=== PATIENT | male | born 1975 | race Caucasian/White ===

== ENCOUNTER 2017-01-13 02:30 | Emergency (ER) | payer OTHER ==
[~2017-01-13] VITALS: Ht 180.3 cm; Wt 83.9 kg
--- NOTE | ~2017-01-13 | EKG ---
[address] [address] ELECTROCARDIOGRAM REPORT Name: OMAR FORRESTER Room #: DEP [place]#: [id number] Admission: 01/13/17 Attend Phys: Discharge: 01/13/17 Date of : 73 Report #: [id number] THIS REPORT FOR: //name// [facility] ED Test Date: 2017-01-13 Test Time: 03:11:57 Pat Name: OMAR FORRESTER Department: Room: Gender: M Marketing Program Manager: olayinka : 1975 Requested By: Mae Gaona Order Number: [id number] MD: Sukhi Person Measurements Intervals [place] Rate: 104 P: 50 MA: 149 QRS: 65 QRSD: 91 T: 10 QT: 325 QTc: 428 Interpretive Statements Sinus tachycardia No previous ECG available for comparison Electronically Signed On 01-13-2017 11:28:45 CDT by Sukhi Person [email or web address] <ELECTRONICALLY SIGNED> By: Sukhi Person MD 01/13/17 1128 0311 0311 Sukhi Person MD /EPI
[~2017-01-13 02:30] MED LIST: BACITRACIN15 GM TP
[2017-01-13] MEDS ORDERED: ATIVAN0.5 MG PO (02:59)
[2017-01-13] MEDS ORDERED: ATIVAN1 MG PO (03:00)
[2017-01-13] MEDS ORDERED: REMERON15 MG PO (03:01)
[2017-01-13] MEDS ORDERED: CLONAZEPAM 1 MG1 M1 PO ×2 (03:01→06:27)
[2017-01-13] MEDS ORDERED: ZOLOFT50 MG PO (03:03)
[2017-01-13] MEDS ORDERED: TOPAMAX 100 MG100 MG PO (03:04)
[2017-01-13] MEDS ORDERED: VITAMIN D1000 UNI1 PO (03:05)
[2017-01-13] MEDS ORDERED: ACETAMINOPHEN-1 EAC1 PO (03:05)
[2017-01-13] MEDS ORDERED: VOLTAREN GEL 1100 G2 TOP (03:06)
[2017-01-13] MEDS ORDERED: ZONEGRAN100 MG PO (03:06)
[2017-01-13 03:15] LABS: ABSOLUTE NEUTROPHILS 5.7 thou/uL (1.4-8.2); BASOPHILS 0.5 % (0.0-2.0); HEMATOCRIT 42.6 % (42.0-52.0); HEMOGLOBIN 14.4 gm/dL (14.0-18.0); LYMPHOCYTES 18.3 % (24.0-44.0); MANUAL DIFF NO; MCH 30.3 pg (26.0-34.0); MCHC 33.8 g/dL (28.0-37.0); MCV 89.6 fL (80.0-100.0); MONOCYTES 5.8 % (1.0-8.0); PLATELET COUNT 238 thou/uL (150-400); POLYS 73.4 % (36.0-66.0); RBC 4.75 mil/uL (4.50-6.00); RDW 13.6 % (10.5-14.5); WBC 7.7 thou/uL (4.0-11.0)
[2017-01-13 03:23] LABS: CALCIUM 8.8 mg/dL (8.5-10.1); CREATININE 1.4 mg/dL (0.6-1.3); POTASSIUM 3.4 mmol/L (3.5-5.1)
[2017-01-13 03:28] LABS: ALBUMIN 3.8 g/dL (3.4-5.0); TOTAL BILIRUBIN 0.3 mg/dL (<0.1-1.0); TOTAL PROTEIN 7.2 g/dL (6.4-8.2)
[2017-01-13 04:00] LABS: APTT 18.9 Seconds (24.5-32.8); PROTIME 10.5 Seconds (9.3-11.4)
[2017-01-13 05:32] LABS: URINE BILIRUBIN NEGATIVE (Negative); URINE BLOOD NEGATIVE (Negative); URINE COLOR YELLOW; URINE GLUCOSE-RANDOM* NEGATIVE (Negative); URINE KETONES NEGATIVE (Negative); URINE LEUKOCYTES-REFLEX NEGATIVE (Negative); URINE PROTEIN (DIPSTICK) NEGATIVE (Negative); URINE SPECIFIC GRAVITY 1.015 (1.003-1.035); URINE UROBILINOGEN 0.2 E.U./dl (0.2-1.0)
[2017-01-13] MEDS ORDERED: LAMICTAL100 MG PO (06:26)
[2017-01-13 07:20] VITALS: BP 115/90
== END 2017-01-13 07:20 ==
LOC: ER 02:30
PROVIDERS: Emergency Medicine
DX: G40.909 Epilepsy, unspecified, not intractable, without status epilepticus (principal); S09.90XA Unspecified injury of head, initial encounter; F32.9 Major depressive disorder, single episode, unspecified; Z88.8 Allergy status to other drugs, medicaments and biological substances; X58.XXXA Exposure to other specified factors, initial encounter; Y93.89 Activity, other specified; Y92.89 Other specified places as the place of occurrence of the external cause; Y99.8 Other external cause status

== ENCOUNTER 2020-02-25 09:32 | Inpatient (IN) | payer OTHER ==
[~2020-02-25] VITALS: Ht 180.3 cm; Wt 80.3 kg
[~2020-02-25 09:32] MED LIST changes: +ACETAMINOPHEN-1 EAC1 PO; +ATIVAN0.5 MG PO; +ATIVAN1 MG PO; +CLONAZEPAM 1 MG1 M1 PO; +LAMICTAL100 MG PO; +REMERON15 MG PO; +TOPAMAX 100 MG100 MG PO; +VITAMIN D1000 UNI1 PO; +VOLTAREN GEL 1100 G2 TOP; +ZOLOFT50 MG PO; +ZONEGRAN100 MG PO
[2020-02-25 09:38] VITALS: BP 99/65
[2020-02-25 09:53] LABS: ABSOLUTE NEUTROPHILS 4.7 thou/uL (1.4-8.2); BASOPHILS 0.5 % (0.0-2.0); EOSINOPHILS 2.7 % (0.0-3.0); HEMATOCRIT 42.5 % (42.0-52.0); HEMOGLOBIN 14.8 gm/dL (14.0-18.0); LYMPHOCYTES 22.7 % (24.0-44.0); MCH 32.2 pg (26.0-34.0); MCHC 34.7 g/dL (28.0-37.0); MCV 92.7 fL (80.0-100.0); MONOCYTES 5.5 % (1.0-8.0); PLATELET COUNT 310 thou/uL (150-400); POLYS 68.6 % (36.0-66.0); RBC 4.59 mil/uL (4.50-6.00); RDW 12.4 % (10.5-14.5); WBC 6.8 thou/uL (4.0-11.0)
[2020-02-25 10:10] LABS: SALICYLATE < 2.8 mg/dL (2.8-20.0)
[2020-02-25 10:38] LABS: CALCIUM 9.1 mg/dL (8.5-10.1); CREATININE 1.4 mg/dL (0.7-1.3)
[2020-02-25 10:41] LABS: POTASSIUM 4.3 mmol/L (3.5-5.1)
[2020-02-25 10:44] LABS: ALBUMIN 3.5 g/dL (3.4-5.0); TOTAL BILIRUBIN 0.7 mg/dL (<0.1-1.0); TOTAL PROTEIN 7.1 g/dL (6.4-8.2)
[2020-02-25 10:53] LABS: URINE BILIRUBIN NEGATIVE (Negative); URINE BLOOD NEGATIVE (Negative); URINE CLARITY CLEAR; URINE COLOR YELLOW; URINE GLUCOSE-RANDOM* NEGATIVE (Negative); URINE KETONES NEGATIVE (Negative); URINE LEUKOCYTES-REFLEX NEGATIVE (Negative); URINE NITRITE-REFLEX NEGATIVE (Negative); URINE PROTEIN (DIPSTICK) NEGATIVE (Negative); URINE UROBILINOGEN 0.2 E.U./dl (0.2-1.0)
[2020-02-25 11:06] LABS: AMP/METHAMP Negative (Negative); BARBITURATES Negative (Negative); BENZODIAZEPINES Negative (Negative); COCAINE Negative (Negative); METHADONE Negative (Negative); OPIATES Negative (Negative); PCP Negative (Negative)
[2020-02-25] MEDS ORDERED: ACETAMINOPHEN650 M5 PO (11:18)
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
[2020-02-25] MEDS ORDERED: MIDAZOLAM H PO (11:21)
[2020-02-25] MEDS ORDERED: MULTI-VITAMIN1 EAC5 PO (11:23)
[2020-02-25 12:04] VITALS: BP 116/71
[2020-02-25 13:29] VITALS: BP 97/59
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
[2020-02-25 15:28] LABS: TSH 1.395 uIU/mL (0.358-3.740)
--- NOTE | 2020-02-25 18:10 | NUR ---
WEARING SAFTEY HELMET PER PT REPORT FOR FALLING AND HITTING HEAD FREQUENTLY IN SAME SPOT. SCALP IS NOTED TO HAVE SMALL PEICE OF TAPE TO BACK OF HEAD SLIGHTLY LEFT OFF MIDLINE-NOTED TO HAVE APPROX 1.5CM X 3 CM WOUND MODERATE AMOUNT BARRIENTOS/LIGHT GREEN DRAINAGE ON TAPE COVERING. CLEANSED WITH NORMAL SALINE AND HAIR SURROUNDING CUT BACK,MATED PARTICALS REMOVED,LARGE AMOUNT DRIED BLOOD,MATTED HAIR,SKIN REMOVED AND AREA COVERED WITH OPTIFORM BORDER ADHESIVE DRESSING. DR. COVARRUBIAS NOTIFIED. WOUND CARE CONSULT ORDERED.
[2020-02-25 19:38] VITALS: BP 92/61
--- NOTE | 2020-02-26 05:27 | NUR ---
Assumed care of pt @ 1900. Pt calm et cooperative with pleasant bryantnor this shift. Took medications whole without difficulty but expressed that he did not like taking his medications at HS as he generally takes his HS medications around 1700 while at home. Advised pt to talk with physician when he sees him today to discuss his concerns with the timing of his meds. Pt verbalized understanding. Ambulates halls ad farideh with steady gait. VSWNL. Health assessment with no abnormalities other than noted previously. Denies SI/HI. Currently resting in bed with eyes closed. Pt appears to have rested well this shift. Will continue to monitoe per protocol.
--- NOTE | 2020-02-26 07:42 | EKG ---
[facility] [address] [place] [address] ELECTROCARDIOGRAM REPORT Name: OMAR FORRESTER Room #: [facility]- ADM IN M.R.#: [id number] Admission: 02/25/20 Attend Phys: Bob Grier DO Discharge: Date of : 73 Report #: [id number] THIS REPORT FOR: cc: Moises Durand James D. DO Lundgren, Craig H. MD [facility] ~ THIS REPORT FOR: //name// [facility] ED Test Date: 2020-02-25 Test Time: 09:49:13 Pat Name: OMAR FORRESTER Department: Room: [facility] Gender: M Physiology Teacher: justus : 1975 Requested By: Raymon Matias Order Number: [id number] MD: Martinez Tompkins Measurements Intervals [place] Rate: 95 P: 38 MI: 145 QRS: 46 QRSD: 95 T: -5 QT: 343 QTc: 431 Interpretive Statements Sinus rhythm Borderline T abnormalities Compared to ECG 01/13/2017 03:11:57 T-wave abnormality now present Sinus tachycardia no longer present Electronically Signed On 02-26-2020 7:40:38 CDT by Martinez Tompkins [email or web address] <ELECTRONICALLY SIGNED> By: Martinez Tompkins MD, [facility] 02/26/20 0740 0949 0949 Martinez Tompkins MD, [facility] /EPI
[2020-02-26 08:27] VITALS: BP 86/52
--- NOTE | 2020-02-26 12:14 | NUR ---
WITHDRAWN TO ROOM INITALLY THIS AM REFUSING TO COME OUT FOR BREAKFAST BUT DID FINISH ENTIRE MEAL IN ROOM. COMPLIENT WITH TAKING AM MEDICATIONS WITHOUT RESISITANCE. LABILE MOOD INITALLY THIS AM ABRUPT AND TERSE WITH VERBAL RESPONSES-ANGRY/TENSE FACIAL EXPRESSION. AT 1100 WAS BRIGHTER APPEARED MORE RELAXED AND SLIGHTLY MORE VERBAL. CONTINUES TO STATE DURING 1;1 THAT HE DOESN'T WANT OR NEED TO BE HERE. DENIES C/O PAIN. NO SZ ACTIVITY SO FAR THIS SHIFT. REMAINS ON FALLS PRECAUTIONS FOR FREQUENT SEIZURES/FALLS
--- NOTE | 2020-02-26 14:18 | NUR ---
BLOOD PRESSURE TAKEN VIA BRIANNE CUFF PER MD ORDER 112/64 P-70. DR. MCGRAW PAGED AWAITING RETURN CALL
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
[2020-02-26 19:30] VITALS: BP 101/65
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
--- NOTE | 2020-02-26 21:11 | NUR ---
Assumed care at change of shift. Pt. was sitting in day room watching TV. He is complaining about intrusive patients. Education done regarding proper actions if he has a complaint or if another patient is bothering him either mentally or physically. He states that he is happy with his room change. He is alert and oriented x 3. He is able to recall the actions that brought him to [facility], but is unable to give any information regarding his discharge planning. He his wearing his helmet/hat for head protection due to seizures. Optifoam is intact and dry to wound at back of head. He currently denies pain or any seizure activity. He states that he very rarely has any indication when a seizure is upon him. He was instructed to call out if he is in need of any assistance or if any seizure activity is noted. He currently denies any pain but states that it "hurts" when they change the dressing to his head. No signs or symptoms of pain or any distress is noted and no seizure activity is noted.
[2020-02-26 23:12] VITALS: BP 101/65
--- NOTE | 2020-02-27 06:31 | NUR ---
Pt. slept well throughout shift. No complaints from patient and no signs or symptoms of pain or distress noted.
[2020-02-27 07:45] VITALS: BP 85/50
--- NOTE | 2020-02-27 09:00 | NUR ---
Assumed care at 0700. Pt. ate all of his breakfast.He knows his name and that he is in the hospital. He said he would take a shower though has not made any effort to take the shower. He is not a self-initiator. He gravittes to his bed when when not eating.
--- NOTE | 2020-02-27 12:10 | NUR ---
Assumed care at 0700. No offered complaints. He was compliant with medications. He was seen by the wound card physician--who saw head wound and approved of the wound care. He declined lunch stating "I usually don't eat lunch. Pt. stated he typically does not eat lunch and usually spends most of his days on the weekend in bed. In a brief conversation with patient he revealed some of his hobbies. His speech was clear, organized without any indication of aphasia.
--- NOTE | 2020-02-27 16:33 | NUR ---
0815 VS recheck+ Lying=left art=89/55 p=81, Sitting=95/65 p78, Standing=90/68 P=104.
[2020-02-27 19:30] VITALS: BP 98/65
--- NOTE | 2020-02-28 04:58 | NUR ---
Assumed care of pt @ 1900. Pt calm et cooperative this shift. No medication ordered to be given this shift. Ambulates the halls ad farideh with steady gait. Socialized with peers in dayroom until HS. VSWNL. Health assessment with no abnormalities noted at present time. Denies SI/HI. Currently resting in bed with eyes closed. Will continue to monitor per protocol.
[2020-02-28 07:37] VITALS: BP 107/55
[2020-02-28 09:24] LABS: CALCIUM 8.8 mg/dL (8.5-10.1); CREATININE 1.2 mg/dL (0.7-1.3); POTASSIUM 3.5 mmol/L (3.5-5.1)
--- NOTE | 2020-02-28 17:21 | NUR ---
0700 ASSUMED CARE OF PATIENT, PATIENT LYING IN BED AT THAT TIME. 0800 PATIENT TO DAYROOM FOR BREAKFAST. NO C/O PAIN, DENIES NEEDS. BS ACTIVE. MEDICATION TAKEN WHOLE WITHOUT DIFFICULTY. WOUND TO HEAD CLEANED WITH NS AND OINTMENT APPLIED. BANDAGE APPLIED. PATIENT STATES GOAL FOR TODAY WOULD BE TO GET OUT OF HERE AND CONCERN OF PATIENT IS HE DOES NOT LIKE BEING HERE. PATIENT STATES "I UNDERSTAND THEIR POINT OF VIEW, THE SITUATION DID ESCALATE AND WE ALL HAVE LIMITS". "I DO NOT BELONG HERE, I AM FINE". PATIENT TALKS TO MUSIC INTERNSH[employer] AND NOTED TO BE SAD ABOUT THE INCIDENT. PATIENT SITS IN DAYROOM WATCHING TV AND COMMUNICATING WELL WITH OTHERS. WILL CONTINUE TO OBSERVE
[2020-02-28 19:40] VITALS: BP 110/68
--- NOTE | 2020-02-28 22:33 | NUR ---
ASSUMED CARE ON 02/28/20 @ 19:15. IN THE MILEU, SOCIALIZING WITH PEERS, HELPING PEERS AND WATCHING TV. CAUTIONED NOT TO ASSIST PEERS, BUT TO ADVISE NURSING IF HE SEES SOMEONE WHO NEEDS HELP. COOPERATIVE WITH ASSESSMENT, NO HS MEDICATIONS ORDERED. RETIRED TO BED @ 2200 WHEN TV TURNS OFF. IN BED WITH EYES CLOSED, RESPIRATIONS EVEN AND UNLABORED
[2020-02-29 01:20] VITALS: BP 110/68
[2020-02-29 07:23] VITALS: BP 77/45
--- NOTE | 2020-02-29 10:22 | NUR ---
0700 ASSUMED CARE OF PATIENT, PATIENT IN BED AT THAT TIME. 0800 PATIENT OUT IN DAYROOM FOR BREAKFAST. PATIENT CALM AND COOPERATIVE NO C/O PAIN. DENIED NEEDS AT THAT TIME. MEDICATION TAKEN WHOLE WITHOUT DIFFICULTY. 1015 VS RETAKEN, ATTEMPTED TO GET BP ON LEFT ARM AND THE CUFF INFLATED AND TIGHTENED AROUND ARM PATIENT BECAME TENSE WITH HANDS CURLED IN IF ABOUT TO HAVE A SIEZURE. SOON CUFF WAS REMOVED AND NO LONGER BLANCO PRESSURE ON ARM PATIENT WAS NO LONGER TENSE AND DID NOT APPEAR TO BE HAVING A SIEZURE. PATIENT DID NOT RECAL WHAT HAPPENED FOR ABOUT A MIN THEN STATES "I KNOW I WAS TENSE". BP TAKEN ON RIGHT ARM BP-103/70 P-100. PATIENT SITTING IN DAYROOM WATCHING TV. WILL CONTINUE TO OBSERVE.
--- NOTE | 2020-02-29 13:16 | NUR ---
SONIA contacted pt's mom and left a msg. SONIA contacted Jenelle with [facility] regarding pt's discharge tomorrow. She confirmed that was fine. SONIA explained that pt much have someone accompany him to his appointments with Dr. Gomez. She said she can send staff with pt when he has appointments. SONIA asked about transportation and was told that SONIA needs to arrange that with the admissions department. Jenelle put SW on hold for 25 min. SONIA then hung up and called the facility back and was told that Jenelle left the building. SONIA then asked for admissions and after 5 more min. on hold did not receive an answer. SONIA contacted Dr. Gomez's clinic at [phone] and did not receive an answer. SONIA will attempt to do so again. SONIA team will continue to follow pt during his stay on this unit.
[2020-02-29 19:43] VITALS: BP 104/65
[2020-02-29 22:07] LABS: SYPHILIS AB Non Reactive (Non Reactive)
[2020-03-01 04:28] VITALS: BP 104/65
[2020-03-01 08:29] VITALS: BP 83/45
--- NOTE | 2020-03-01 09:31 | NUR ---
0700 ASSUMED CARE OF PATIENT AT THAT TIME. PATIENT IN BED AT THAT TIME. 0800 PATIENT IN CHAIR IN DAYROOM FOR BREAKFAST 0825 MEDICATIONS TAKEN WHOLE WITHOUT DIFFICULTY. AFTER BREAKFAST PATIENT WATCHING TV IN DAYROOM. WHILE LABORATORY TESTER WAS PASSING MEDS TO OTHER PATIENT, LABORATORY TESTER WITNESSED PATIENT HAVING A SIEZURE THAT LASTED LESS THAN A MIN. DURING SIEZURE LABORATORY TESTER SUPPORTED PATIENT IN A SITTING POSITION TO PATIENT SAFETY. PATIENT ATTEMPTED TO GET UP THE SIEZURE STARTED TO SUBSIDE. PATIENT OPENS EYES AND A BIT CONFUSED AND DOES NOT SPEAK TO LABORATORY TESTER RIGHT AWAY. AFTER ABOUT 20 SECONDS OF PATIENT OPENING EYES PATIENT IS ALERT AND ORIENTED X4. PATIENT DOES NOT REMEMBER THE SIEZURE AND DENIES HAVING ANY PREMONITION OF A SIEZURE COMING ON. PATIENT IS CALM AND COOPERATIVE. LUNG SOUNDS CLEAR, BS ACTIVE, NO C/O PAIN. ENCOURAGE FLUIDS AND H2O GIVEN. PATIENT REMAINS IN DAYROOM SITTING IN CHAIR. DR JARRETT HERE AND NOTIFIED. DR MUSE CALLED AND NOTIFIED. NO NEW ORDERS RECIEVED. WILL CONTINUE TO OBSERVE.
--- NOTE | 2020-03-01 10:08 | NUR ---
SONIA contacted patti Mills with [facility], for assistance with patients transportation for discharge. She said she will set up discharge for [id number]; however, the new policy requires pt's to have COVID testing before returning. Lina said that she will try to get that waived for pt given he was already okayed by [facility]elle to return. SONIA provided this update to Dr. Grier. SONIA suggested that they wait unil an answer comes from [facility] on if they will require pt to have that test. If so, pt will discharge tomorrow. SW team will continue to follow pt during his stay on this unit.
--- NOTE | 2020-03-01 11:07 | NUR ---
SW had a 1-1 with pt in which he described his frustration with not being heard at his facility. SW provided psychoeducation on depression; pt said that his psychologist said he is depressed but he does not agree. SW asked pt what he thinks he can do differently in the future, and he responded that he did not know he could go to his DON Jenelle about his concerns. SW supported that idea and also explained that all nursing homes have a grievance process. If pt feels like he has been complaining to staff and [facility] but are not being heard, he can ask about their grievance process. Pt admitted to seeing signs on the wall at the facility with the information for the Ombudsman. SW also relayed to pt about his delayed discharge and agreed with his frustration on not discharging today. Pt and SW contacted his mom and provided an update. When pt left SW office it was to be tested for COVID-19
[2020-03-01] MEDS ORDERED: CLONAZEPAM 1 MG1 M1 PO (14:43)
--- NOTE | 2020-03-01 16:41 | HC ---
[facility] [place] [address] CONSULTATION Name: OMAR FORRESTER Room #: 528A-A ADM IN M.R.#: [id number] Admission: 02/25/20 Attend Phys: Bob Grier DO Discharge: Date of : 73 Report #: [id number] THIS REPORT FOR: cc: Moises Durand,Howie Martinez MD ~ CC: Bob Durand DATE OF SERVICE: 02/26/2020 CHIEF COMPLAINT: Scalp ulceration. HISTORY OF PRESENT ILLNESS: This is a 44-year-old male patient with a history of epilepsy, status post vagal nerve stimulator implantation, who was sent here from [facility] for psychiatric evaluation. He has apparently developed an ulceration or wound to his scalp. He believes he fell and bumped his head about a month ago, although is a little bit fuzzy on details. I have been asked to see him with regard to wound care. PAST MEDICAL HISTORY: Positive for seizure disorder. He is status post vagal nerve stimulator. SOCIAL HISTORY: Lives in a shelter. Denies alcohol or tobacco use. FAMILY HISTORY: Noncontributory. REVIEW OF SYSTEMS: CONSTITUTIONAL: The patient denies fever, chills or weight loss. NEUROLOGICAL: The patient denies focal weakness, numbness or tingling. EYES: The patient denies visual changes, redness, or drainage. ENT: The patient denies earache, nasal drainage, sore throat. CARDIOVASCULAR: The patient denies chest pain, palpitations or diaphoresis. PULMONARY: The patient denies cough or shortness of breath. GASTROINTESTINAL: The patient denies nausea, vomiting, diarrhea or abdominal pain. ORTHOPEDIC: The patient denies pain, swelling, drainage from both lower extremities. Other systems in a 14-point review of systems are negative. PHYSICAL EXAMINATION: VITAL SIGNS: At this time include temperature 36.6, pulse 74, respiratory rate 16, blood pressure 86/52. GENERAL: This is a well-developed male patient who appears to be a little bit slow to answer questions, but in no obvious distress. HEENT: Head demonstrates a circular wound or ulceration to the [facility] [address] [place] [address] CONSULTATION Name: OMAR FORRESTER Room #: 528A-A ADM IN [facility].#: [id number] Admission: 02/25/20 Attend Phys: Bob Grier DO Discharge: Date of : 73 Report #: [id number] occipitoparietal region. It is relatively clean with healthy granulation tissue and some evidence of new epithelialization at the margins. It is not infected. There is minimal drainage and no odor at this time. No deformity, no exposure of scalp or other deep structures. Nose and throat are clear. Tympanic membranes are intact. NECK: Supple. LUNGS: Clear. HEART: Regular rhythm. ABDOMEN: Soft. Bowel sounds present. NEUROLOGIC: The patient is alert. He does move all 4 extremities spontaneously. His level of orientation is a little bit difficult to assess. LABORATORY DATA: Sodium 140, potassium 4.3, chloride 108, CO2 of 23, BUN 9, creatinine 1.4, glucose 103, total protein 7.1, albumin 3.5. White blood cell count 6.8 with a hemoglobin of 14.8. CLINICAL IMPRESSION: Scalp wound, etiology is unclear. This may in fact be traumatic. It does not have the appearance of a malignancy to plain site. I think we could localize care and if we see steady improvement, then no additional excision or biopsy would be required. If it fails to improve, then I think a biopsy would be an appropriate intervention. We will use a little bit of Bactroban ointment and a Mepilex dressing, which he is agreeable to. He is wearing a hat. Otherwise, keep dressings in place. He is a bit balding, so I think that this area will hold the dressing fairly well. He will need ongoing nutritional support. He is going to have additional psychiatric care assessment provided here. I appreciate being asked to see him in consultation. <ELECTRONICALLY SIGNED> By: Howie Kennedy MD 03/01/20 1641 [id number] Howie Kennedy MD /nt
--- NOTE | 2020-03-01 17:09 | NUR ---
PATIENT GIVEN DC INSTRUCTION, PATIENT VOICED UNDERSTANDING. AT 1645 PATIENT DC VIA WC WITH [facility]. ACCOMPANIED TO VEHICLE WITH STAFF MEMBER. PATIENT'S BELONGINGS IN HAND. REPORT CALLED TO DILLAN AT [facility] AT 1655.
--- NOTE | 2020-03-03 12:39 | D ---
[facility] [place] [address] DISCHARGE SUMMARY Name: OMAR FORRESTER Room #: 528A-A [facility] IN M.R.#: [id number] Admission: 02/25/20 Attend Phys: Bob Grier DO Discharge: 03/01/20 Date of : 73 Report #: [id number] THIS REPORT FOR: cc: Moises Durand James D. DO Kerstein, Andrew H. DO ~ THIS REPORT FOR: //name// CC: Bob Durand DATE OF SERVICE: 03/01/2020 PSYCHIATRIC DISCHARGE SUMMARY HOSPITAL COURSE: Of note, it was thought this patient was demented and he had been bumped around between his skilled nursing at [facility], the day prior to admission, so I elected to make an exception and go ahead and treat him on our unit. ATTENDING PHYSICIAN: Bob Grier DO HADOOP ADMINISTRATOR AT THE TIME OF DISCHARGE: Dr. Molina. DISCHARGE DIAGNOSES: Impulse control disorder, unspecified, improved. Seizure disorder, both severe and symptomatic as the patient had at least 2 witnessed breakthrough seizures less than a minute in duration during his hospitalization, allegedly has a VNS device implanted. Additional comorbidities include CKD stage II-III. History of recurrent falls. His DPOA was enacted for purposes of this admission that is his mother, Adrianna. We did a wound care consultation with Dr. Kennedy. He had a nonhealing scalp laceration. Recommended Bactroban and Mepilex on border daily to twice daily, Bactroban complications for the next 10 days. DISCHARGE DIET: Regular. ACTIVITY LEVEL: As tolerated. DISCHARGE MEDICATIONS: Clonazepam, which was lowered to 1 mg p.o. 3 times a day, it was previously 2 mg to 3 mg. He is on high dose anticonvulsants, topiramate 400 mg p.o. b.i.d., zonisamide 500 mg p.o. daily and lamotrigine 400 mg p.o. b.i.d., cholecalciferol 1000 International Units p.o. daily, multivitamin p.o. daily, bacitracin ointment applied twice a day for 10 days. Also, elected to stop his sertraline, mirtazapine as sometimes antidepressants can have a disinhibiting quality. The patient will be discharging back to [facility] for long-term psychiatric and medical care per the [address] [address] DISCHARGE SUMMARY Name: OMAR FORRESTER Room #: 528A-A [facility] IN .R.#: [id number] Admission: 02/25/20 Attend Phys: Bob Grier, DO Discharge: 03/01/20 Date of : 73 Report #: [id number] receiving facility. The patient does see Dr. Gutierrez for epileptology and neurology followup. I did call Dr. Gutierrez today to discuss his breakthrough seizures, left my cell number, did not receive a call back as of this evening in approximately 9 hours after I had called him. PERTINENT LABORATORY DATA: This admission; CBC on 02/25/2020 was within normal limits. Chemistry is grossly normal. Vitamin D level was 38.8. B12 was 716. TSH 1.395. UDS was negative except for benzodiazepine as expected. Salicylates less than 2.8. Acetaminophen less than 2. Syphilis serology was done, which was negative. COVID-19 PCR was required by skilled nursing and was negative. REASON FOR ADMISSION: Back on 02/25/2020 is as follows: The patient had been sent out from skilled nursing. Evidently, he was abusive toward staff and yelling at people. He had several problem behaviors including an incident where he tipped to get out of the wheelchair. HOSPITAL COURSE: The patient was admitted to Geriatric Psychiatry Unit. I reviewed his medications with the facility that of his mother. Given some of the constraints that he was already on three anticonvulsants and the nursing facility would only permit a true purpose of psychosis. I attempted to treat him with guanfacine .5 mg twice a day. His blood pressure remained borderline low and I did not feel it was safe given his history of falls and traumatic brain injury to continue this medication, so largely the admission was made of counseling and working on better problem resolution strategies. The patient was counseled that further inappropriate behavior to skilled nursing would likely lead to his eviction from being able to stay there. The patient aknowledged this. At the time of discharge, the patient was not suicidal or homicidal. PHYSICAL EXAMINATION: VITAL SIGNS: At time of discharge are as follows: Temperature 36.5, pulse 80, respirations 23. BP; they have 83/45 listed, but it did come up higher than that I believe, we do not check here, although earlier today it was 104/65, but other than the seizure activity this morning, the patient was not acting abnormal. MUSCULOSKELETAL: Wearing glasses. Normal gait and station. Unshaven though. MENTAL STATUS EXAMINATION: This is a well-developed, fairly nourished male, appearing stated age. Attention limited. Concentration fair. Speech is normal, rate, rhythm and tone. Thought process is linear and goal directed. Thought content focused on discharge. No psychomotor agitation. No sudden retardation. Mood and affect congruent and euthymic. Denied SI or HI. Denied auditory, visual or tactile hallucinations. Memory not formally tested. Insight limited. Judgment fair. Fund of knowledge, no greater than average. [facility] [address] [place] [address] DISCHARGE SUMMARY Name: OMAR FORRESTER Room #: 528A-A DIS IN M.R.#: [id number] Admission: 02/25/20 Attend Phys: Bob Grier DO Discharge: 03/01/20 Date of : 73 Report #: [id number] PROGNOSIS: For this patient is fair to guarded depending on him pursuing counseling as I have recommended to his mother at the skilled nursing as well as the patient control of his seizure disorder. addendum: I spoke to Dr. Jose Elias gutierrez his epileptologist on Saturday. He reported his VNS is working. He stated Clonazepam was being used as anticonvulsant. He states break thru seizures on day of discharge may be due to lowering the dose of Clonazepam. I relayed my disinhibitory concern and danger of patient getting evicted from [place]. [facility] since he is dsicharged. I spoke to his mother Eber after call with Dr. Mujica. Psychotherpay is essential but I would have Dr. Mujica manage psych and neuro meds at this point sicne seziures so refractory and medications intertwined. during stay. <ELECTRONICALLY SIGNED> By: Bob Grier DO 03/03/20 1239 2212 Bob Grier, /nt
== END 2020-03-01 16:45 | DRG 886 ==
LOC: ER 09:32 → SBH 11:29 → EROBS 11:29 → SBH 12:05
PROVIDERS: Emergency Medicine; Internal Medicine; ADMIT Psychiatry & Neurology Psychiatry
DX: F63.9 Impulse disorder, unspecified (principal); N17.9 Acute kidney failure, unspecified; N18.3 Chronic kidney disease, stage 3 (moderate); F32.9 Major depressive disorder, single episode, unspecified; X58.XXXA Exposure to other specified factors, initial encounter; F41.9 Anxiety disorder, unspecified; S00.01XA Abrasion of scalp, initial encounter; G40.909 Epilepsy, unspecified, not intractable, without status epilepticus; Z79.899 Other long term (current) drug therapy; Z88.8 Allergy status to other drugs, medicaments and biological substances; Y93.89 Activity, other specified; Y92.89 Other specified places as the place of occurrence of the external cause; Y99.8 Other external cause status; Z96.82 Presence of neurostimulator; Z03.818 Encounter for observation for suspected exposure to other biological agents ruled out
CPT/HCPCS: 10880

== ENCOUNTER 2020-04-19 05:21 | Emergency (ER) | payer OTHER ==
[~2020-04-19] VITALS: Ht 180.3 cm; Wt 79.4 kg
[~2020-04-19 05:21] MED LIST changes: +ACETAMINOPHEN650 M5 PO; +MIDAZOLAM H PO; +MULTI-VITAMIN1 EAC5 PO
[2020-04-19] MEDS ORDERED: LORAZEPAM I2 MG/1 ML PO (05:28)
[2020-04-19] MEDS ORDERED: CLONAZEPAM 1 MG1 M1 PO (05:29)
[2020-04-19] MEDS ORDERED: KLONOPIN1 MG PO (05:30)
[2020-04-19 06:11] LABS: BASOPHILS 0.2 % (0.0-2.0); EOSINOPHILS 0.1 % (0.0-3.0); LYMPHOCYTES 7.3 % (24.0-44.0)
[2020-04-19 06:12] LABS: ABSOLUTE NEUTROPHILS 12.7 thou/uL (1.4-8.2); HEMATOCRIT 42.5 % (42.0-52.0); HEMOGLOBIN 14.6 gm/dL (14.0-18.0); MCH 31.6 pg (26.0-34.0); MCHC 34.4 g/dL (28.0-37.0); MONOCYTES 4.1 % (1.0-8.0); PLATELET COUNT 212 thou/uL (150-400); POLYS 88.3 % (36.0-66.0); RBC 4.62 mil/uL (4.50-6.00); RDW 13.1 % (10.5-14.5); WBC 14.4 thou/uL (4.0-11.0)
[2020-04-19 06:23] LABS: CALCIUM 8.7 mg/dL (8.5-10.1); CREATININE 1.4 mg/dL (0.7-1.3); POTASSIUM 3.4 mmol/L (3.5-5.1)
[2020-04-19 06:28] LABS: ALBUMIN 3.6 g/dL (3.4-5.0); DIRECT BILIRUBIN 0.2 mg/dL (<0.1-0.2); TOTAL BILIRUBIN 0.5 mg/dL (0.2-1.0); TOTAL PROTEIN 6.7 g/dL (6.4-8.2)
[2020-04-19 07:43] LABS: URINE BILIRUBIN NEGATIVE (Negative); URINE BLOOD NEGATIVE (Negative); URINE CLARITY CLEAR; URINE COLOR YELLOW; URINE GLUCOSE-RANDOM* NEGATIVE (Negative); URINE KETONES NEGATIVE (Negative); URINE LEUKOCYTES-REFLEX NEGATIVE (Negative); URINE NITRITE-REFLEX NEGATIVE (Negative); URINE PROTEIN (DIPSTICK) NEGATIVE (Negative); URINE SPECIFIC GRAVITY 1.015 (1.005-1.035)
[2020-04-19 08:54] VITALS: BP 86/52
== END 2020-04-19 08:54 | disposition short-term general hospital (02) ==
LOC: ER 05:21
PROVIDERS: Emergency Medicine
DX: R50.9 Fever, unspecified (principal); Z79.899 Other long term (current) drug therapy; Z88.8 Allergy status to other drugs, medicaments and biological substances; Z20.828 Contact with and (suspected) exposure to other viral communicable diseases